=== PATIENT | female | born 1940 | race Caucasian/White ===

== ENCOUNTER 2020-07-19 11:52 | Inpatient (IN) | payer MEDICARE ==
[~2020-07-19] VITALS: Ht 157.5 cm; Wt 50.0 kg
[~2020-07-19 11:52] MED LIST: ASPIRIN 32325 MG/TAB PO; ASPIRIN 81M81 MG/TA2 PO; ASPIRIN E.C. 8181 MG PO; BEE POLLEN; BIOTIN1000 MCG PO; CALCIUM + D 6001 TA1 PO; CALCIUM 600MG+D1 TAB PO; CO Q-1010 M1 PO; COQ(10)1010 MG PO; D3; DARVOCET N 101 UDTAB PO; DIOVAN160 MG PO; FISH OIL 1000MG1 CAP PO; FISH OIL CONC1000 MG PO; FOLIC ACID 40400 MCG PO; GABAPENTIN300 M1 PO; GARLIC1000 MG PO; GNC L-ARGININE500 MG PO; HCTZ12.5TAB PO; L ARGININE; LIPITOR80 MG PO; LISINOPRIL10 MG PO; LISINOPRIL40 MG PO; LOPRESSOR 225 MG/TAB PO; NATURE'S BLE1000 MCG PO; PLAVIX 75MG TAB75 MG PO; POTASSIUM95 MG PO; RASPBERRY KETONE; VITAMIN C500 MG PO; VITAMIN D31000 IU PO; ZESTRIL 10MG10 MG PO; ZOCOR 20MG20 MG PO; ZOCOR 80MG80 MG PO; blood pressure med
[2020-07-19 12:20] LABS: BASO % 0.4 % (0.0-2.0); EOS % 0.3 % (0-4.0); GRAN # 8.1 (1.4-6.5); GRAN % 88.8 % (42.2-75.2); HEMATOCRIT 38.6 % (37.0-47.0); HEMOGLOBIN 13.1 g/dl (12.5-16.0); LYMPH # 0.6 (1.2-3.4); LYMPH % 6.2 % (20.0-51.0); MEAN CELL VOLUME 90 fl (80.0-100.0); MEAN CORPUSCULAR HEMOGLOBIN 30 pg (27.0-31.0); MEAN CORPUSCULAR HGB CONC 34 g/dl (33.0-37.0); MEAN PLATELET VOLUME 8.9 fl (7.4-10.4); MONO # 0.4 (0.1-0.6); PLATELET COUNT 142 K/mm3 (130-400); RED BLOOD COUNT 4.31 M/mm3 (4.10-5.30); REDCELL DISTRIBUTION WIDTH-CV 12.3 % (11.5-14.5)
[2020-07-19 12:28] LABS: ALBUMIN 4.4 gm/dL (3.5-5.0); BILIRUBIN,TOTAL 1.5 mg/dL (0.0-1.0); CALCIUM 9.4 mg/dL (8.4-10.2); CREATININE, serum 9.49 (0.52-1.25); POTASSIUM 5.1 mmol/L (3.4-5.0); TOTAL PROTEIN 7.5 gm/dL (6.4-8.2)
[2020-07-19 13:05] LABS: ALBUMIN 3.8 gm/dL (3.5-5.0); BILIRUBIN,TOTAL 1.3 mg/dL (0.0-1.0); CALCIUM 8.8 mg/dL (8.4-10.2); CREATININE, serum 9.11 (0.52-1.25); MAGNESIUM 2.1 mg/dL (1.6-2.3); PHOSPHOROUS 5.8 mg/dL (2.5-4.5); TOTAL PROTEIN 6.6 gm/dL (6.4-8.2)
[2020-07-19 13:08] LABS: POTASSIUM 5.9 mmol/L (3.4-5.0)
[2020-07-19 13:16] LABS: ARTERIAL BLD GAS O2 SATURATION 94.6 % (92-100); ARTERIAL BLD GAS TCO2 CT 16.5; ARTERIAL BLOOD GAS BASE EXCESS -9.3 (-2-2); ARTERIAL BLOOD GAS HCO3 15.5 meq/L (22-26); ARTERIAL BLOOD GAS PCO2 30.7 mmHg (35-45); ARTERIAL BLOOD GAS PO2 79.3 mmHg (80-100); ARTERIAL BLOOD GAS pH 7.32 (7.35-7.45)
[2020-07-19 14:37] LABS: COLLECTION METHOD CLEAN CATCH
[2020-07-19 14:51] LABS: MUCOUS Present /lpf; PH 6 (5-8); SQUAMOUS EPITHELIAL None Seen /hpf; URINE APPEARANCE Clear; URINE BACTERIA None Seen /hpf; URINE BILIRUBIN Negative (NEGATIVE); URINE BLOOD Negative (NEGATIVE); URINE COLOR Yellow; URINE GLUCOSE Negative (NEGATIVE); URINE KETONE Trace (NEGATIVE); URINE LEUKOCYTE ESTERASE Negative (NEGATIVE); URINE NITRATE Negative (NEGATIVE); URINE PROTEIN(semi-quant) Negative (NEGATIVE); URINE RBC 0-2 /hpf; URINE UROBILINOGEN Negative (NEGATIVE)
[2020-07-19 16:48] VITALS: BP 166/74; PULSE 67; TEMP 98.2
[2020-07-19 18:08] LABS: CALCIUM 8.9 mg/dL (8.4-10.2); CREATININE, serum 9.01 (0.52-1.25); POTASSIUM 4.3 mmol/L (3.4-5.0)
[2020-07-19 20:13] VITALS: BP 173/90; PULSE 91; TEMP 98.4
--- NOTE | 2020-07-19 20:45 | NUR ---
Patient assessed around 2014. Alert and oriented x 4. Denies having pain and discomfort. Worried about cat. Peripheral IV to right forearm with fluids running per orders. Denies having SOB and dyspnea. LS CTA. Respirations even and unlabored. HRR. Telemetry in place: paced. Capillary refill less than 3 seconds. Non-tenting skin turgor. BSAx4. Abdomen soft and non-tender. No edema. Indwelling varela catheter patent, and draining clear yellow urine via dependent drainage. No edema. Patient has abrasions to forehead and nose. Patient's BP around 2029 was 173/90. Given PRN Appresoline per orders around 2039. Patient voices no questions, needs, or concerns at this time, except for getting her cat fed. High fall risk precautions in place. Bed alarm on.
[2020-07-19 23:50] VITALS: BP 135/56; PULSE 72; TEMP 98.9
[2020-07-20 00:58] LABS: CALCIUM 8.9 mg/dL (8.4-10.2); CREATININE, serum 7.94 (0.52-1.25); POTASSIUM 3.5 mmol/L (3.4-5.0)
[2020-07-20 04:55] VITALS: BP 142/65; PULSE 65; TEMP 98.4
--- NOTE | 2020-07-20 06:00 | NUR ---
Patient has been resting in bed with call light within reach. Has denied having pain and discomfort. Potassium around midnight was 3.5. Patient has scheduled Kayexelate. Updated SOFIE Liang. Stated to wait to see what 0600 Potassium was and ask Hospitalist in the morning if medications should be held or started on Potassium Protocol. Will update day shift nurse. High fall risk precautions in place. Bed alarm on.
[2020-07-20 06:27] LABS: BASO % 0.4 % (0.0-2.0); EOS # 0.2 (0.0-0.7); EOS % 2.9 % (0-4.0); GRAN # 6.3 (1.4-6.5); GRAN % 76.9 % (42.2-75.2); HEMOGLOBIN 11.5 g/dl (12.5-16.0); LYMPH # 0.9 (1.2-3.4); LYMPH % 10.8 % (20.0-51.0); MEAN CELL VOLUME 90 fl (80.0-100.0); MEAN CORPUSCULAR HEMOGLOBIN 31 pg (27.0-31.0); MEAN CORPUSCULAR HGB CONC 34 g/dl (33.0-37.0); MEAN PLATELET VOLUME 9.2 fl (7.4-10.4); MONO # 0.7 (0.1-0.6); PLATELET COUNT 113 K/mm3 (130-400); RED BLOOD COUNT 3.76 M/mm3 (4.10-5.30); REDCELL DISTRIBUTION WIDTH-CV 12.3 % (11.5-14.5)
[2020-07-20 06:33] LABS: HEMATOCRIT 33.8 % (37.0-47.0)
[2020-07-20 06:37] LABS: CALCIUM 8.5 mg/dL (8.4-10.2); CREATININE, serum 7.68 (0.52-1.25); MAGNESIUM 1.9 mg/dL (1.6-2.3); PHOSPHOROUS 6.1 mg/dL (2.5-4.5); POTASSIUM 3.2 mmol/L (3.4-5.0)
[2020-07-20 08:23] VITALS: BP 148/86; PULSE 56; TEMP 98.6
[2020-07-20 11:44] VITALS: BP 118/42; PULSE 64; TEMP 98.3
[2020-07-20 12:12] LABS: CALCIUM 8.5 mg/dL (8.4-10.2); CREATININE, serum 7.3 (0.52-1.25); POTASSIUM 3.2 mmol/L (3.4-5.0)
[2020-07-20 16:46] VITALS: BP 102/51; PULSE 62; TEMP 98.8
--- NOTE | 2020-07-20 20:00 | NUR ---
Assessment complete. Patient is alert and pleasantly/partially confused; She can state the year and president and birthdate but is unaware of situation. She has no complaints of pain. No edema is noted. 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 Fluids infusing into right a/c IV. Bed alarm set and call light in reach. Will continue to monitor.
[2020-07-20 20:14] VITALS: BP 116/95; PULSE 77; TEMP 98.9
[2020-07-21] VITALS: BP 150/74; PULSE 70; TEMP 97.9
[2020-07-21 03:37] VITALS: BP 136/74; PULSE 68; TEMP 98.7
--- NOTE | 2020-07-21 08:20 | NUR ---
Shift assessment complete. Pt partially oriented. Heart RRR. Lungs CTA. Denies pain, does report intermittent nausea but declines medication at this time. Kwon w/peach-colored urine and small blood clots noted. Denies needs. Call light in reach.
[2020-07-21 08:21] LABS: BASO % 0.5 % (0.0-2.0); EOS # 0.4 (0.0-0.7); EOS % 6.6 % (0-4.0); GRAN # 4.2 (1.4-6.5); GRAN % 72.5 % (42.2-75.2); HEMOGLOBIN 11.4 g/dl (12.5-16.0); LYMPH # 0.7 (1.2-3.4); LYMPH % 12.3 % (20.0-51.0); MEAN CELL VOLUME 88 fl (80.0-100.0); MEAN CORPUSCULAR HEMOGLOBIN 30 pg (27.0-31.0); MEAN CORPUSCULAR HGB CONC 34 g/dl (33.0-37.0); MEAN PLATELET VOLUME 9.3 fl (7.4-10.4); MONO # 0.5 (0.1-0.6); MONO % 7.8 % (1.7-9.3); PLATELET COUNT 101 K/mm3 (130-400); RED BLOOD COUNT 3.79 M/mm3 (4.10-5.30); REDCELL DISTRIBUTION WIDTH-CV 12.1 % (11.5-14.5)
[2020-07-21 08:35] LABS: CALCIUM 7.7 mg/dL (8.4-10.2); CREATININE, serum 6.49 (0.52-1.25); MAGNESIUM 1.5 mg/dL (1.6-2.3); PHOSPHOROUS 5.7 mg/dL (2.5-4.5); POTASSIUM 3.1 mmol/L (3.4-5.0)
[2020-07-21 08:45] LABS: HEMATOCRIT 33.4 % (37.0-47.0)
[2020-07-21 09:32] VITALS: BP 171/77; PULSE 65; TEMP 97.7
[2020-07-21 10:51] LABS: CREATININE, serum 6.46 (0.52-1.25)
[2020-07-21 10:55] LABS: FRACTIONAL EXCRETION OF NA+ 10.8 %
[2020-07-21 17:44] VITALS: BP 151/68; PULSE 76; TEMP 98
--- NOTE | 2020-07-21 20:00 | NUR ---
Assessment complete. Patient is alert and partially oriented; Her conversation is repetitive and irrelevant at times. She has no complaints of pain. HR normal/regular and lungs clear with fine crackles in bases. Patient is ambulated with SBA and walker to bathroom; Linen change and partial bed bath is provided. No new concerns, will continue to monitor.
[2020-07-21 21:07] VITALS: BP 131/72; PULSE 74; TEMP 97.8
[2020-07-22] VITALS: BP 137/67; PULSE 71; TEMP 98
[2020-07-22 04:12] VITALS: BP 150/71; PULSE 65; TEMP 97.6
--- NOTE | 2020-07-22 04:57 | NUR ---
Patient complaining of nausea at this time. PRN zofran administered. No additional symptoms are expressed. Will continue to monitor.
[2020-07-22 07:03] LABS: HEMOGLOBIN 11.7 g/dl (12.5-16.0); MEAN CELL VOLUME 90 fl (80.0-100.0); MEAN CORPUSCULAR HEMOGLOBIN 30 pg (27.0-31.0); MEAN CORPUSCULAR HGB CONC 34 g/dl (33.0-37.0); MEAN PLATELET VOLUME 9.3 fl (7.4-10.4); PLATELET COUNT 117 K/mm3 (130-400); RED BLOOD COUNT 3.86 M/mm3 (4.10-5.30); REDCELL DISTRIBUTION WIDTH-CV 12.2 % (11.5-14.5)
[2020-07-22 07:05] LABS: HEMATOCRIT 34.6 % (37.0-47.0)
[2020-07-22 07:13] LABS: CALCIUM 7.5 mg/dL (8.4-10.2); CREATININE, serum 6.2 (0.52-1.25); MAGNESIUM 2.7 mg/dL (1.6-2.3); POTASSIUM 3.6 mmol/L (3.4-5.0)
[2020-07-22 08:02] VITALS: BP 154/61; PULSE 84; TEMP 97.9
--- NOTE | 2020-07-22 08:29 | NUR ---
Shift assessment complete. Pt throwing up bile upon entry. One time dose of zofran given per orders. Brought pt sprite and crackers. Alert, oriented x3. Very forgetful and often repeats same stories multiple times in a row. Heart RRR. Lungs CTA. Kwon in place w/peach-colored urine. Denies other needs at this time. Continuing to monitor.
[2020-07-22 11:18] VITALS: BP 134/59; PULSE 69; TEMP 98
--- NOTE | 2020-07-22 15:59 | NUR ---
Front Office Specialist met with patient to discuss discharge planning. Patient lives alone in [place] and sees Dr. Hernandez for primary care. Patient obtains medications from [facility] and advised she has no difficulty paying for medications. Patient states she did lost her car keys recently and is trying to obtain the phone number for Daylin Duenas so they can make her a new set. SW provided phone number. Patient does not use any DME and reports independence with ADLS. Patient has DPOA-HC in EMR which designates Mary Lowery and Mary Stanton. Patient would like to update this document and will think about who to update it to. SW reviewed PT recommendation for Home Health and patient is agreeable to this. SW reviewed Medicare.gov list of HH agencies and patient selected [facility]. SW contacted Amy at [facility] and faxed referral. SW followed up in the afternoon about DPOA-HC. Patient states she may designate her CPA, Loli but wants to talk with her first. SW advised patient that a referral was sent to [facility] and patient advised she had no memory of prior conversation with SW, which occurred this morning. SW advised that she reviewed recommendation for HH and patient had selected [facility]. Patient states she sometimes forgets things but that this sounds good. MANASA contacted Carmita, Front Office Specialist at Dr. Hernandez's office to gather more information about patient. Carmita advised she has tried getting Home Health set up for patient. Carmita also stated that patient has DPOA-HC documents completed already which designate patient's CPA. Carmita to fax over copy. Carmita advised patient also has a financial sales consultant. Carmita has been in contact with this financial sales consultant who has told her patient has the funds to private pay for extermination inspector care or assisted living, however does not want to spend her money on this. MANASA advised Carmita that a referral has been sent to [facility]. Discharge Plan: Home with Home Health.
[2020-07-22 16:43] VITALS: BP 115/64; PULSE 95; TEMP 98.2
[2020-07-22 19:30] VITALS: BP 147/70; PULSE 74; TEMP 98
--- NOTE | 2020-07-23 00:05 | NUR ---
Patient laying in bed upon enter the room. Shift assessment completed. Patient pleasant, alert and oriented but forgetful. Patient denies any pain or discomfort. Denies SOB, N/V, dizziness or headache. Kwon catheter in place and draining yellow urine. IVF running per MAR. All scheduled meds given per MAR. Call light within reach. Will continue to monitor.
[2020-07-23 01:05] VITALS: BP 144/67; PULSE 68; TEMP 97.9
[2020-07-23 03:47] VITALS: BP 150/74; PULSE 62; TEMP 97.9
[2020-07-23 06:55] LABS: CALCIUM 7.3 mg/dL (8.4-10.2); CREATININE, serum 5.69 (0.52-1.25); MAGNESIUM 2.2 mg/dL (1.6-2.3); PHOSPHOROUS 5.6 mg/dL (2.5-4.5); POTASSIUM 3.8 mmol/L (3.4-5.0)
[2020-07-23 07:04] LABS: BASO % 0.5 % (0.0-2.0); EOS # 0.4 (0.0-0.7); EOS % 5.7 % (0-4.0); GRAN # 4.6 (1.4-6.5); GRAN % 70.9 % (42.2-75.2); HEMATOCRIT 37.1 % (37.0-47.0); HEMOGLOBIN 12.4 g/dl (12.5-16.0); LYMPH # 1.1 (1.2-3.4); LYMPH % 16.9 % (20.0-51.0); MEAN CELL VOLUME 90 fl (80.0-100.0); MEAN CORPUSCULAR HEMOGLOBIN 30 pg (27.0-31.0); MEAN CORPUSCULAR HGB CONC 33 g/dl (33.0-37.0); MEAN PLATELET VOLUME 9.1 fl (7.4-10.4); MONO # 0.4 (0.1-0.6); MONO % 5.7 % (1.7-9.3); PLATELET COUNT 143 K/mm3 (130-400); RED BLOOD COUNT 4.13 M/mm3 (4.10-5.30); REDCELL DISTRIBUTION WIDTH-CV 12.4 % (11.5-14.5)
[2020-07-23 08:01] VITALS: BP 151/68; PULSE 65; TEMP 97.9
--- NOTE | 2020-07-23 10:55 | NUR ---
Assessment compelted, see note. Pt is alert and oriented with no compalints of pain or discomfort. Pt resting in bed, breathing even and unlabored. Medical team in to see patient, fluids adjusted per order. Bed alarm set, call davalos in reach, bed in low position.
[2020-07-23 11:31] VITALS: BP 134/58; PULSE 72; TEMP 97.8
--- NOTE | 2020-07-23 13:54 | NUR ---
Senior Applications Analyst attended clinical rounds with the team and Hospitalist recommended SNF placement to patient, who advised she is agreeable to this. SW met with patient to discuss options. Patient states she is open to whatever SW suggests. SW advised patient that she will have to decide on what facility to discharge to and patient verbalized understanding. Patient would like referrals sent to all three SNFs in [place]: [facility], [facility], and [facility]. SW contacted all three facilities and faxed referral with DPOA-HC paperwork. MANASA received DPOA-HC documents from MANASA Vizcarra at Dr. Hernandez's office which designate Loli Bergeron (ph#[phone]) as DPOA-HC. SW contacted Loli to provide update on discharge plan. MANASA advised Loli that SNF referrals have been sent and Loli is agreeable to this plan. Loli expressed that she is concerned for patient's cat as it is hot outside and patient lives in a home with no air conditioning. MANASA asked why patient's home does not have AC and Loli advised that it is by patient's choice. MANASA advised Loli it may be an option to board patient's cat and Loli to look into this. Discharge Plan: [facility], [facility], and [facility]
--- NOTE | 2020-07-23 14:07 | NUR ---
Pt assisted with lunch tray ordering. Lunch arrived and patient sitting up in bed eating without difficulty. Wanda/catheter care completed. Bed alarm set, call davalos in reach, bed in low position.
[2020-07-23 15:53] VITALS: BP 142/59; PULSE 72; TEMP 98.3
[2020-07-23 19:54] VITALS: BP 160/67; PULSE 72; TEMP 98
--- NOTE | 2020-07-23 20:00 | NUR ---
Assessment complete. Patient answers 3 out of 4 orientation questions correctly but conversation is repetitive and irrelevant at times. She has no complaints of pain. Lungs are clear with diminished bases and HR is normal/regular. LUE is edematous and bruised; SOFIE Liang called to assess and orders a venous duplex study for the morning. For now it is elevated with a warm compress. IV fluids currently infusing into right IV. Comfort measures provided and call light in reach.
[2020-07-24] VITALS (8 sets, daily range): BP systolic 119–163; BP diastolic 51–71; PULSE 60–70; TEMP 97.6–98.7
[2020-07-24 06:05] LABS: ALBUMIN 2.7 gm/dL (3.5-5.0); BILIRUBIN,TOTAL 0.3 mg/dL (0.0-1.0); CALCIUM 7.3 mg/dL (8.4-10.2); CREATININE, serum 5.2 (0.52-1.25); POTASSIUM 3.6 mmol/L (3.4-5.0); TOTAL PROTEIN 5.1 gm/dL (6.4-8.2)
--- NOTE | 2020-07-24 08:57 | NUR ---
Assessment completed, see note for additional. Pt has no complaints of pain or discomfort this morning. Able to answer orientation questions appropriately but with frequent confusion and repetitive conversation. Pt has scattered brusing to upper extremities with edema in the left upper arm-scheduled for doppler ultrasound today. Radial pulses palpable 2+ bilaterally in upper extremities. Abrasion to bridge of nose and forehead appear to be healing, left open to air. No drainage or discharge. PT in to work with patient at this time. Bed in low position, call davalos in reach, bed alarm set. Will continue to moniotr.
--- NOTE | 2020-07-24 16:48 | NUR ---
Sole Molding Machine Operator contacted Mckayla at [facility] who advised they can accept patient upon discharge. Rell at [facility] notified SW that they will decline referral. MANASA also followed up with Hugh at [facility] who advised they are still reviewing and may not have a bed available depending on date of discharge. MANASA followed up with patient who did not recall yesterday's conversation about SNF referrals, but is agreeable to rehab placement. MANASA advised patient that [facility] has accepted and she is agreeable to this. Discharge Plan: [facility] SNF, also awaiting screen from [facility] as another option.
[2020-07-25 04:38] VITALS: BP 140/66; PULSE 65; TEMP 98
[2020-07-25 06:53] LABS: BASO % 0.5 % (0.0-2.0); EOS # 0.4 (0.0-0.7); EOS % 5.3 % (0-4.0); GRAN # 4.8 (1.4-6.5); GRAN % 72.1 % (42.2-75.2); HEMOGLOBIN 10.6 g/dl (12.5-16.0); LYMPH # 0.9 (1.2-3.4); LYMPH % 13.1 % (20.0-51.0); MEAN CELL VOLUME 90 fl (80.0-100.0); MEAN CORPUSCULAR HEMOGLOBIN 30 pg (27.0-31.0); MEAN CORPUSCULAR HGB CONC 33 g/dl (33.0-37.0); MEAN PLATELET VOLUME 9.5 fl (7.4-10.4); MONO # 0.6 (0.1-0.6); MONO % 8.4 % (1.7-9.3); PLATELET COUNT 127 K/mm3 (130-400); RED BLOOD COUNT 3.51 M/mm3 (4.10-5.30); REDCELL DISTRIBUTION WIDTH-CV 12.5 % (11.5-14.5)
[2020-07-25 06:57] LABS: HEMATOCRIT 31.7 % (37.0-47.0)
[2020-07-25 07:01] LABS: ALBUMIN 2.5 gm/dL (3.5-5.0); CALCIUM 7.5 mg/dL (8.4-10.2); CREATININE, serum 4.76 (0.52-1.25); PHOSPHOROUS 4.8 mg/dL (2.5-4.5); POTASSIUM 3.9 mmol/L (3.4-5.0)
[2020-07-25 07:57] VITALS: BP 172/68; PULSE 63; TEMP 97.9
--- NOTE | 2020-07-25 08:30 | NUR ---
Scheduled medications given
--- NOTE | 2020-07-25 08:45 | NUR ---
Scheduled medications given, shift assessment preformed. Patient IV in right forearm inflammed, swollen, and painful to the touch. Fluids stopped and IV removed. New site started on left forearm. Patient answers all orientation questions correctly, but still has some intermittent confusion. +1 edema noted on BLE. +3 edema noted on LUE. +2 edmea noted on RUE. Patient denies any pain, discomfort, or futher needs at this time. Indwelling cath in place. Dependent drainage, no kinks in tubing, securment devices in use. Call light in reach. Fall precautions in place.
--- NOTE | 2020-07-25 10:00 | NUR ---
Patient c/o of nausea and vomitting. PRN Zofran given. HOB left at 50 degrees, emesis basin given to patient. Will continue to monitor. Call light in reach. Fall precautions in place.
--- NOTE | 2020-07-25 11:00 | NUR ---
Patient no longer C/O of nausea or vomiting. Denies any further needs at this time. Will continue to monitor. Call light in reach. Fall precautions in place.
[2020-07-25 11:36] VITALS: BP 151/72; PULSE 73; TEMP 98.2
[2020-07-25 16:00] VITALS: BP 163/72; PULSE 80; TEMP 98.2
--- NOTE | 2020-07-25 16:44 | NUR ---
Spot Checker faxed clinical updates to [facility]. Hugh at [facility] notified SW that patient is showing up as having [employer]. MANASA contacted Mckayla at [facility] who was aware and has submitted for authorization. MANASA also updated LISANDRO Mckinney-CM. MANASA faxed clinicals to [facility] to submit for prior auth for SNF. MANASA contacted patient's DPOA-HC, Loli who advised she is overwhelmed trying to make arrangements for patient's cat. Loli states she has a lot going on in her life and has been too busy to take care of patient's cat. [facility] pending insurance authorization.
--- NOTE | 2020-07-25 18:56 | NUR ---
Patient has had an ok day. Does not C/O any pain, discomfort, SOA, or N/V. Call light in reach. Fall precautions in place. Report given to LISANDRO Alegria.
[2020-07-25 21:39] VITALS: BP 117/45; PULSE 66; TEMP 98.6
[2020-07-26 00:19] VITALS: BP 129/53; PULSE 68; TEMP 98.6
[2020-07-26 03:26] VITALS: BP 124/57; PULSE 70; TEMP 98.4
--- NOTE | 2020-07-26 06:07 | NUR ---
patient slept all night without any issues. No vomitting that I got from report yesterday. She rested comfortably in bed.
[2020-07-26 06:19] LABS: BASO % 0.3 % (0.0-2.0); EOS # 0.4 (0.0-0.7); EOS % 4.8 % (0-4.0); GRAN # 5.9 (1.4-6.5); GRAN % 76.5 % (42.2-75.2); LYMPH # 0.7 (1.2-3.4); LYMPH % 9.5 % (20.0-51.0); MEAN CELL VOLUME 92 fl (80.0-100.0); MEAN CORPUSCULAR HEMOGLOBIN 31 pg (27.0-31.0); MEAN CORPUSCULAR HGB CONC 33 g/dl (33.0-37.0); MEAN PLATELET VOLUME 9.6 fl (7.4-10.4); MONO # 0.7 (0.1-0.6); MONO % 8.5 % (1.7-9.3); PLATELET COUNT 138 K/mm3 (130-400); RED BLOOD COUNT 3.24 M/mm3 (4.10-5.30); REDCELL DISTRIBUTION WIDTH-CV 12.9 % (11.5-14.5)
[2020-07-26 06:27] LABS: CALCIUM 7.7 mg/dL (8.4-10.2); CREATININE, serum 4.42 (0.52-1.25); MAGNESIUM 1.6 mg/dL (1.6-2.3)
[2020-07-26 06:45] LABS: HEMATOCRIT 29.9 % (37.0-47.0)
[2020-07-26 07:58] VITALS: BP 133/58; PULSE 64; TEMP 98.3
[2020-07-26 11:28] VITALS: BP 116/51; PULSE 72; TEMP 98.4
--- NOTE | 2020-07-26 16:43 | NUR ---
Paper Cone Maker faxed clinical updates to [facility] and [facility]. Mckayla at [facility] advised that even if they obtain insurance auth, they may not be able to accept due to concerns of how long they will be able to skill her. Hugh at [facility] advised that they can accept with insurance auth. MANASA contacted [facility] and was advised they have received clinicals and would like a peer to peer. SW provided peer to peer information to hospitalist (ph#[phone] option 5). MANASA met with patient to provide update. MANASA advised patient that if [employer] does not authorize SNF, they she would be discharged home with Home Health services. Patient is agreeable to this plan. SW also provided this update to ADAM Ennis who also verbalized understaning of the plan. A referral to [facility] had been sent earlier in the week. MANASA contacted Fredis at [facility] and left a message. Discharge Plan: SNF at [facility] or [facility] pending insurance authorization. If auth is denied, plan is for Home with Home Health.
[2020-07-26 17:20] VITALS: BP 118/51; PULSE 66; TEMP 98.1
--- NOTE | 2020-07-26 18:00 | NUR ---
Patient has had an ok day. Scheduled medication given. Zofran given earlier in the shift for nausea. This has since resolved. Kwon catheter removed. Catheter and balloon intact. Purewick placed. Patient has voided since removal. Patient denies any pain, discomfort, or futher needs at this time. Call light in reach. Fall precautions in place. Report given to LISANDRO Alegria.
[2020-07-26 20:31] VITALS: BP 158/59; PULSE 64; TEMP 98.7
[2020-07-27] VITALS (7 sets, daily range): BP systolic 116–166; BP diastolic 52–84; PULSE 65–81; TEMP 98.4–98.9
--- NOTE | 2020-07-27 04:59 | NUR ---
Patient wake up this morning complaininf of being nauseated. Zofran PRN given at 0430. Help her to get back to sleep again. Continue to monitor.
[2020-07-27 09:19] LABS: CALCIUM 8.2 mg/dL (8.4-10.2); CREATININE, serum 4.67 (0.52-1.25)
--- NOTE | 2020-07-27 19:16 | NUR ---
Pt had uneventful day. Up to the chair several times today, walked with SBA/1A. Denied pain. She is incontinent of urine. Periwick in place, good UOP. Fall precautions in place. Call light within reach.
--- NOTE | 2020-07-27 20:30 | NUR ---
Initial shift assessment done-- very pleasant, oriented to person/place-not to situation- states " I dont know" forgetful, Was up in chair- used walker w/assist to get back to bed- weak,, denies pain, watching some TV
[2020-07-28 04:01] VITALS: BP 136/70; PULSE 75; TEMP 98.1
--- NOTE | 2020-07-28 05:48 | NUR ---
Quiet night-- denies any pain. VSS. Has Purewick on for incontinence-
[2020-07-28 07:56] VITALS: BP 149/76; PULSE 74; TEMP 98.1
[2020-07-28 08:31] LABS: BASO % 0.2 % (0.0-2.0); EOS # 0.3 (0.0-0.7); EOS % 3.1 % (0-4.0); GRAN # 7.3 (1.4-6.5); GRAN % 80.3 % (42.2-75.2); LYMPH # 0.7 (1.2-3.4); LYMPH % 7.3 % (20.0-51.0); MEAN CELL VOLUME 91 fl (80.0-100.0); MEAN CORPUSCULAR HGB CONC 33 g/dl (33.0-37.0); MONO # 0.8 (0.1-0.6); MONO % 8.8 % (1.7-9.3); PLATELET COUNT 163 K/mm3 (130-400); RED BLOOD COUNT 3.25 M/mm3 (4.10-5.30); REDCELL DISTRIBUTION WIDTH-CV 12.9 % (11.5-14.5)
[2020-07-28 08:32] LABS: HEMATOCRIT 29.5 % (37.0-47.0); HEMOGLOBIN 9.7 g/dl (12.5-16.0); MEAN CORPUSCULAR HEMOGLOBIN 30 pg (27.0-31.0)
[2020-07-28 08:42] LABS: CALCIUM 8.1 mg/dL (8.4-10.2); CREATININE, serum 4.54 (0.52-1.25); MAGNESIUM 1.9 mg/dL (1.6-2.3); PHOSPHOROUS 5.2 mg/dL (2.5-4.5); POTASSIUM 4.1 mmol/L (3.4-5.0)
--- NOTE | 2020-07-28 09:30 | NUR ---
Pt assessment complete. Pt is sitting up in the chair after walking with PT. Pt denies any pain. No N/V/D. Denies SOB. No needs at this time. Call light within reach.
[2020-07-28 12:48] VITALS: BP 133/63; PULSE 71; TEMP 98.1
[2020-07-28 17:00] VITALS: BP 116/59; PULSE 67; TEMP 98.1
--- NOTE | 2020-07-28 18:20 | NUR ---
Pt had uneventful day. No pain or concerns voiced. Pt does repeat herself frequently, but compliant with all cares. Good UOP. NO needs at this time. Fall precautions in place.
--- NOTE | 2020-07-28 20:45 | NUR ---
Initial shift assessment done- forgetful-- telling the same stories etc, very pleasant, states she doesnt know whats going on and doesnt really care--seems content, only concern is her cat,,,, resting quietly, VSS, has purewick on for urinary incontinence.
[2020-07-28 20:55] VITALS: BP 157/78; PULSE 81; TEMP 98.2
[2020-07-29 01:00] VITALS: BP 153/65; PULSE 73; TEMP 98.3
[2020-07-29 04:51] VITALS: BP 152/71; PULSE 73; TEMP 98
[2020-07-29 06:00] LABS: BASO % 0.3 % (0.0-2.0); EOS # 0.4 (0.0-0.7); EOS % 3.8 % (0-4.0); GRAN # 7.1 (1.4-6.5); GRAN % 78.3 % (42.2-75.2); LYMPH # 0.8 (1.2-3.4); LYMPH % 8.7 % (20.0-51.0); MEAN CELL VOLUME 90 fl (80.0-100.0); MEAN CORPUSCULAR HGB CONC 33 g/dl (33.0-37.0); MEAN PLATELET VOLUME 9.8 fl (7.4-10.4); MONO # 0.8 (0.1-0.6); MONO % 8.5 % (1.7-9.3); PLATELET COUNT 174 K/mm3 (130-400); RED BLOOD COUNT 3.25 M/mm3 (4.10-5.30); REDCELL DISTRIBUTION WIDTH-CV 12.6 % (11.5-14.5)
--- NOTE | 2020-07-29 06:00 | NUR ---
Quiet night- VSS,, slept well, states is always cold- extra blankets given--was incontinent of urine throughout the night,, purewick not staying in place tonight! Encouraged to call when has the urge to void-remains very forgtful/confused as to time/date and situation.
[2020-07-29 06:08] LABS: HEMATOCRIT 29.2 % (37.0-47.0); HEMOGLOBIN 9.7 g/dl (12.5-16.0); MEAN CORPUSCULAR HEMOGLOBIN 30 pg (27.0-31.0)
[2020-07-29 06:13] LABS: ALBUMIN 2.8 gm/dL (3.5-5.0); CALCIUM 8.3 mg/dL (8.4-10.2); CREATININE, serum 4.16 (0.52-1.25); PHOSPHOROUS 5.1 mg/dL (2.5-4.5)
[2020-07-29 07:34] VITALS: BP 154/71; PULSE 71; TEMP 97.9
--- NOTE | 2020-07-29 07:44 | NUR ---
Pt assessment complete. Pt up in chair eating breakfast at this time. She is pleasant and cooperative with cares, repeats herself frequently. She denies any pain. No SOB. No N/V/D. Good appetite. Pt concerned for her cat, reassurance given. Fall precautions in place.
[2020-07-29 11:22] VITALS: BP 123/59; PULSE 70; TEMP 97.5
[2020-07-29 16:26] VITALS: BP 136/65; PULSE 65; TEMP 98.6
--- NOTE | 2020-07-29 16:58 | NUR ---
Solution Analyst collaborated with Hospitalist who advised peer to peer was completed and [employer] denied auth for SNF. MANASA contacted [facility] and confirmed this. SW was advised that per their medical office scheduler, patient's needs can be met at a lower level of care. MANASA updated [facility] and [facility]. MANASA contacted Amy at [facility] and faxed updates. MANASA advised Amy that patient will discharge tomorrow. MANASA contacted MANASA Vizcarra at Dr. Hernandez's office to provide update. MANASA advised Carmita that patient will need follow up on possibly establishing Safety Sealer Care or Assisted Living. MANASA scheduled a follow up with Dr. Hernandez for 08/01/20 at 0900. MANASA made a report to APS (intake #[id number]). MANASA contacted DARIAN Morrison who advised the report screened in and she will visit patient tomorrow morning at the hospital. MANASA advised Prince that part of the concern was with patient's lack of air conditioning. Prince advised that she has worked with patient before and that patient does have AC, however is not great at using it. MANASA contacted LORENA Ennis- who is also concerned about patient returning home and is adamant that she cannot provide supports for patient at home. MANASA reviewed discharge plan and advised that APS will be following up after discharge. MANASA asked Loli if she is DPOA for financial as well and Loli does not think she is. Loli advised it may be Chi Thomas (ph#[phone]), patient's junior financial analyst. MANASA left a message for Chi. Loli states she may be able to provide patient with a ride home tomorrow, but will not take her to her follow up appointment with Dr. Hernandez. MANASA asked Loli if she could assist patient in securing a taxi and Loli did not think she would have time to do this. SW to follow up on transportation to follow up tomorrow. Patient will also need a front wheeled walker. MANASA faxed referral/order to [facility]. Discharge Plan: Home with [facility]. APS report screened in.
--- NOTE | 2020-07-29 19:04 | NUR ---
Uneventful day. Up to the chair for meals, with SBA and walker. Denies needs or concerns. Inconinent or urine, pericare provided. No needs at this time.
--- NOTE | 2020-07-29 19:06 | NUR ---
Received report from Devan. Patient awake in bed. Denies needs at this time.
--- NOTE | 2020-07-29 21:00 | NUR ---
Changed patient's bed sheets, gown and blankets. Placed purewick. Perineal care provided. She denies pain. Bed alarm on.
[2020-07-29 21:13] VITALS: BP 159/68; PULSE 68; TEMP 98.6
[2020-07-30] VITALS (10 sets, daily range): BP systolic 97–193; BP diastolic 53–85; PULSE 65–84; TEMP 98.1–98.8
--- NOTE | 2020-07-30 01:47 | NUR ---
Patient was complaining of headache. She said she doesn't really experience headache that often and wondering why she has one now. Rechecked blood pressure and it was 193/84. Informed her that I will give her Hydralazine to lower her blood pressure and see if her headache would improve as well. She verbalizes understanding. Her purewick was not working, suction changed and re-applied new purewick. Changed patient's bedsheets and gown.
--- NOTE | 2020-07-30 02:25 | NUR ---
Called Azul CARRIZALES to inform her about patient's headache. Updated her about high blood pressure and hydralazine has been given already but after an hour patient still complains of headache and blood pressure still high at 192/85. She ordered Tylenol and another dose of Hydralazine.
--- NOTE | 2020-07-30 03:30 | NUR ---
Patient called saying she wants to go to the bathroom. While fixing the tubings in her purewick, I noticed her urine is a bit bloody. Upon opening her diaper, her purewick is soaked with blood and there are couple of blood clots in her diaper. Vital signs were checked. She denies having headache and pain on her vagina. Called Azul CARRIZALES and she came over to patient's room. Blood was coming out from her vagina. She ordered to insert a varela catheter but it failed. The catheter won't advance anymore. Patient was able to urinate clean catch and will submit that to lab.
[2020-07-30 04:35] LABS: COLLECTION METHOD CLEAN CATCH
[2020-07-30 05:07] LABS: BUDDING YEAST Present /hpf; PH 7 (5-8); SQUAMOUS EPITHELIAL 0-2 /hpf; URINE APPEARANCE Hazy; URINE BACTERIA Rare /hpf; URINE BILIRUBIN Negative (NEGATIVE); URINE BLOOD 3+ (NEGATIVE); URINE COLOR Straw; URINE GLUCOSE Negative (NEGATIVE); URINE KETONE Negative (NEGATIVE); URINE LEUKOCYTE ESTERASE 3+ (NEGATIVE); URINE NITRATE Positive (NEGATIVE); URINE PROTEIN(semi-quant) Negative (NEGATIVE); URINE UROBILINOGEN Negative (NEGATIVE)
[2020-07-30 07:13] LABS: HEMOGLOBIN 10.5 g/dl (12.5-16.0); MEAN CELL VOLUME 91 fl (80.0-100.0); MEAN CORPUSCULAR HEMOGLOBIN 30 pg (27.0-31.0); MEAN CORPUSCULAR HGB CONC 33 g/dl (33.0-37.0); MEAN PLATELET VOLUME 9.7 fl (7.4-10.4); PLATELET COUNT 205 K/mm3 (130-400); RED BLOOD COUNT 3.49 M/mm3 (4.10-5.30); REDCELL DISTRIBUTION WIDTH-CV 12.6 % (11.5-14.5)
[2020-07-30 07:18] LABS: HEMATOCRIT 31.9 % (37.0-47.0)
[2020-07-30 07:25] LABS: ALBUMIN 3.1 gm/dL (3.5-5.0); CALCIUM 8.6 mg/dL (8.4-10.2); CREATININE, serum 4.02 (0.52-1.25); PHOSPHOROUS 4.4 mg/dL (2.5-4.5); POTASSIUM 3.5 mmol/L (3.4-5.0)
[2020-07-30 07:29] LABS: EOSINOPHIL 1 % (0-4); LYMPHOCYTE 6 % (20.0-51.0); NEUTROPHILS 91 % (42.0-75.2); PLATELET ESTIMATE NORMAL (NORMAL)
[2020-07-30 07:30] LABS: HYPOCHROMIA 2+
--- NOTE | 2020-07-30 11:46 | NUR ---
Assessment completed, alert/oriented to person and place but gets very forgetful, vital signs stable, denies pain or discomfort, she is up to the chair with PT this morning, she refused breakfast, fbsb WNL, had vaginal bleeding overnight/ OBGYN consult made, UA collected and started on abx for UTI, she denies other needs at this time
--- NOTE | 2020-07-30 19:05 | NUR ---
Received report from Guerrero. Patient awake in bed. Denies needs at this time.
--- NOTE | 2020-07-30 21:00 | NUR ---
Changed patient's brief. No bleeding noted. She denies pain. Her lungs are clear. No complains of headache. Bed alarm on.
[2020-07-31 01:12] VITALS: BP 120/59; PULSE 80; TEMP 98.2
[2020-07-31 04:02] VITALS: BP 126/60; PULSE 71; TEMP 97.2
--- NOTE | 2020-07-31 05:31 | NUR ---
PAtient had uneventful night. No vaginal bleeding noted. She was asleep most of the night.
[2020-07-31 06:50] LABS: BASO % 0.5 % (0.0-2.0); EOS # 0.4 (0.0-0.7); EOS % 5.5 % (0-4.0); GRAN # 4.8 (1.4-6.5); GRAN % 73.2 % (42.2-75.2); LYMPH # 0.8 (1.2-3.4); LYMPH % 12.1 % (20.0-51.0); MEAN CELL VOLUME 94 fl (80.0-100.0); MEAN CORPUSCULAR HGB CONC 32 g/dl (33.0-37.0); MEAN PLATELET VOLUME 9.4 fl (7.4-10.4); MONO # 0.5 (0.1-0.6); MONO % 8.2 % (1.7-9.3); PLATELET COUNT 211 K/mm3 (130-400); RED BLOOD COUNT 3.17 M/mm3 (4.10-5.30); REDCELL DISTRIBUTION WIDTH-CV 12.9 % (11.5-14.5)
[2020-07-31 06:54] LABS: HEMATOCRIT 29.9 % (37.0-47.0); HEMOGLOBIN 9.7 g/dl (12.5-16.0); MEAN CORPUSCULAR HEMOGLOBIN 31 pg (27.0-31.0)
[2020-07-31 07:08] LABS: CALCIUM 8.4 mg/dL (8.4-10.2); CREATININE, serum 3.9 (0.52-1.25); POTASSIUM 3.8 mmol/L (3.4-5.0)
[2020-07-31 08:20] VITALS: BP 132/115; BP 132/68; PULSE 81; TEMP 98.4
[2020-07-31] MEDS ORDERED: PRINIVIL2.5 MG PO (09:21)
--- NOTE | 2020-07-31 09:21 | NUR ---
On 07/30 this Truck Greaser faxed many referrals so the patient can have placement. MANASA also faxed for authorization to [facility]. MANASA informed the patient's DPOA-HC, Loli. MANASA was contacted by the patient's financial retirement plan specialist, Chi Thomas. He reports the patient has plenty of funds to pay for care at a facility. Mckayla from [facility] reports they have declined the patient. Rell from [facility] reports they have declined the patient. Hugh from [facility] reports they can accept the patient. Dorothy from [facility] reports they can accept the patient. Radha with [facility] reports they can accept the patient. *Discharge disposition: SNF
[2020-07-31] MEDS ORDERED: OMNICEF 300MG300 MG PO (09:24)
[2020-07-31] MEDS ORDERED: ARICEPT10 MG PO (09:25)
[2020-07-31] MEDS ORDERED: PHOSLO667 MG PO (09:27)
[2020-07-31 11:06] VITALS: BP 143/63; PULSE 80; TEMP 98
--- NOTE | 2020-07-31 12:30 | NUR ---
Initial visit; Patient thanked for stopping. No needs at this time.
--- NOTE | 2020-07-31 13:00 | NUR ---
Report received from LISANDRO Mcnulty. PT in bed resting, up often to bathroom but otherwise denies needs, will continue to monitor.
[2020-07-31 14:53] VITALS: BP 143/63; PULSE 80; TEMP 98
--- NOTE | 2020-07-31 15:27 | NUR ---
Pt prepped for discharge to [facility] today. Called [facility] for report but not answer, VM left. Pt getting dressed at this time, will leave with all belongings with [facility] staff. Criterai met.
--- NOTE | 2020-07-31 16:01 | NUR ---
[place] approved the patient for SNF. [facility] Auth ID is [id number]. The patient to discharge today, 07/31 for post acute rehab. Hugh with [facility] is aware the patient should transition to LTC or AL once rehab is complete. The patient to be transported at 1530. MANASA contacted the patient's DPOA-HC, Loli and her financial director, Chi of the above plan. MANASA presented the IM form to Loli. Loli verbalized understanding and gave this SW permission to sign the form on her behalf. Original placed in the chart. MANASA faxed discharge orders and Covid-19 results. There are no additional needs. *Discharge disposition: [facility]
--- NOTE | 2020-08-02 11:17 | NUR ---
Weapons Officer updated DARIAN Morrison on the patient's discharge disposition.
== END 2020-07-31 15:45 | DRG 683 ==
LOC: COL.ER 11:52 → MEDICAL 13:50
PROVIDERS: Family Medicine; Nurse Practitioner; Physician Assistant; ADMIT Internal Medicine
DX: N17.0 Acute kidney failure with tubular necrosis (principal); N39.0 Urinary tract infection, site not specified; E87.2 Acidosis; E87.5 Hyperkalemia; E87.6 Hypokalemia; E83.42 Hypomagnesemia; E88.81 Metabolic syndrome and other insulin resistance; R19.7 Diarrhea, unspecified; R41.89 Other symptoms and signs involving cognitive functions and awareness; N93.9 Abnormal uterine and vaginal bleeding, unspecified
CPT/HCPCS: 99223-AI; 99231-AI; 99232-AI; 99233-AI; 99239; A4314; J0360; J0610; J0696; J1644; J1815; J2405; J3475; J7030; J7120

== ENCOUNTER → 2020-08-16 | Outpatient (CLI) | payer MEDICARE ==
[~2020-08-16] MED LIST changes: +ARICEPT10 MG PO; +OMNICEF 300MG300 MG PO; +PHOSLO667 MG PO; +PRINIVIL2.5 MG PO
== END ==
LOC: ZLAB.STJ 12:21
DX: N17.9 Acute kidney failure, unspecified (principal)

== ENCOUNTER → 2020-08-19 | Outpatient (CLI) | payer MEDICARE | LOC: ZLAB.STJ 11:02 → EDSTATUS 12:37 | DX: Z20.822 Contact with and (suspected) exposure to COVID-19 (principal) ==

== ENCOUNTER → 2020-08-20 | Outpatient (CLI) | payer MEDICARE ==
[2020-08-20 13:27] LABS: CALCIUM 9.2 mg/dL (8.4-10.2); CREATININE, serum 1.67 (0.52-1.25); POTASSIUM 3.8 mmol/L (3.4-5.0)
== END ==
LOC: ZLAB.STJ 13:00
PROVIDERS: Internal Medicine Nephrology
DX: Z01.89 Encounter for other specified special examinations (principal)

== ENCOUNTER → 2021-01-16 | Outpatient (CLI) | payer MEDICARE ==
[2021-01-16 16:10] LABS: CALCIUM 8.9 mg/dL (8.4-10.2); CREATININE, serum 1.43 mg/dL (0.57-1.11); POTASSIUM 4.3 mmol/L (3.5-4.5)
== END ==
LOC: ZLAB.STJ 15:52
PROVIDERS: Internal Medicine Nephrology
DX: N17.9 Acute kidney failure, unspecified (principal)

== ENCOUNTER → 2021-07-23 | Outpatient (CLI) | payer MEDICARE ==
[2021-07-23 15:50] LABS: CALCIUM 9.4 mg/dL (8.4-10.2); CREATININE, serum 1.87 mg/dL (0.57-1.11); POTASSIUM 4.8 mmol/L (3.5-4.5)
== END ==
LOC: ZLAB.STJ 15:16
PROVIDERS: Internal Medicine Nephrology
DX: N17.9 Acute kidney failure, unspecified (principal); I10 Essential (primary) hypertension